=== PATIENT | male | born 1995 | race Asian ===

== ENCOUNTER 2021-05-20 01:55 | Emergency (ER) | payer BC ==
[~2021-05-20] VITALS: Ht 177.8 cm; Wt 77.1 kg
--- NOTE | 2021-05-20 02:08 | NUR ---
PT [employer] 61 AND [employer] FOR BIZARRE BEHAVIOR. RUNNING NAKED. GIVEN 5MG VERSED [employer]ONDITIONER. PLACED IN BED 14 ON MONITOR AND PULSE OX. ER MD AT BEDSIDE FOR EVAL. AWAITING ORDERS.
[2021-05-20] MEDS ORDERED: LORAZEPAM INJ 2 MG/ML VIAL ONE ×2 (02:19→09:32)
[2021-05-20] MEDS ORDERED: OLANZAPINE 10 MG VIAL IM ONE ×6 (02:19→12:30)
[2021-05-20] MEDS ORDERED: LIDOCAINE 2% JEL UROJET 10 ML MM ONE ×2 (02:26→02:30)
[2021-05-20] MEDS ORDERED: LORAZEPAM INJ 2 MG/ML VIAL IM ONE ×2 (02:30→10:00)
--- NOTE | 2021-05-20 02:42 | NUR ---
BLOOD DRAWN AND SENT TO LAB. URINE COLLECTED AND SENT TO LAB.
[2021-05-20 02:52] LABS: BASOPHILS # (AUTO) 0.1 K/uL (0.0-0.2); BASOPHILS % (AUTO) 0.3 % (0.0-2.0); HEMATOCRIT 44 % (39-51); HEMOGLOBIN 14.6 g/dL (13.5-17.5); LYMPHOCYTES # (AUTO) 0.8 K/uL (0.8-4.8); LYMPHOCYTES % (AUTO) 4.3 % (20.0-44.0); MEAN CORPUSCULAR HGB CONC 33 g/dl (31.0-36.0); MEAN CORPUSCULAR VOLUME 90 fL (80-96); MONOCYTES # (AUTO) 1.8 K/uL (0.1-1.30); MONOCYTES % (AUTO) 9.1 % (2.0-12.0); NEUTROPHILS # (AUTO) 16.7 K/uL (1.8-8.9); NEUTROPHILS % (AUTO) 86.3 % (43.0-81.0); PLATELET COUNT (AUTO) 312 K/uL (150-450); RED BLOOD CELL COUNT(AUTO) 4.86 MIL/uL (4.5-6.0); WHITE BLOOD COUNT (AUTO) 19.4 K/uL (4.3-11.0)
[2021-05-20 02:52] LABS: BILIRUBIN,URINE NEGATIVE (NEGATIVE); COLOR,URINE YELLOW (YELLOW); LEUKOCYTE ESTERASE ,URINE NEGATIVE (NEGATIVE); NITRITE, URINE NEGATIVE (NEGATIVE); PROTEIN,URINE 100 mg/dl (NEGATIVE); UGLUCOSE NEGATIVE (NEGATIVE); UROBILINOGEN,URINE 0.2 EU/dL (0.2)
--- NOTE | 2021-05-20 02:55 | NUR ---
ABDOULAYEID SWABBED, SENT TO LAB.
[2021-05-20 03:05] LABS: ALANINE AMINOTRANSFERASE 50 U/L (12-78); ALBUMIN 4.3 g/dL (3.4-5.0); ALCOHOL, BLOOD < 3 mg/dL (0-0); ALKALINE PHOSPHATASE 63 U/L (46-116); ASPARTATE AMINOTRANSFERASE 80 U/L (15-37); BILIRUBIN,DIRECT 0.2 mg/dL (0.0-0.2); BILIRUBIN,TOTAL 0.7 mg/dL (0.2-1.0); CALCIUM, SERUM 8.7 mg/dL (8.5-10.1); CARBON DIOXIDE 25 mmol/L (21-32); CHLORIDE 100 mmol/L (98-107); CREATININE 1.2 mg/dL (0.6-1.3); GLUCOSE 120 mg/dL (74-106); POTASSIUM 3.6 mmol/L (3.5-5.1); SODIUM SERUM 138 mmol/L (136-145); UREA NITROGEN, BLOOD 13 mg/dL (7-18)
[2021-05-20 03:26] LABS: ACETAMINOPHEN < 2 ug/ml (10-30)
[2021-05-20 04:38] LABS: BACTERIA,URINE Moderate /HPF (None Seen); SQUAMOUS EPITHELIAL CELL,UR Few /HPF (None Seen)
[2021-05-20 04:39] LABS: MUCUS,URINE Many /LPF (None Seen); SPERM,URINE Many /HPF (None Seen)
--- NOTE | 2021-05-20 08:16 | NUR ---
THE PATIENT IS RECEIVED IN ER BED #14. SLEEPING. RESPONSIVE TO VERBAL STIMULI. REPSIRATION REGULAR AND UNLABORED. WILL CONTINUE TO MONITOR THE PATIENT.
--- NOTE | 2021-05-20 15:22 | NUR ---
SW attempted to meet with pt. for interview. Pt. was not alert, oriented x1. During interview, pt. was giving SW a blank stare. SW was not able to get answers from pt. Pt. looked unkept. Evidenced by: bruises on legs. SW left homeless resources and homeless waiver in pt.'s chart.
--- NOTE | 2021-05-20 22:18 | NUR ---
Patient discharged to home in stable condition. Written and verbal after care instructions given. Patient verbalizes understanding of instruction.
[2021-05-20 22:19] VITALS: BP 120/69
== END 2021-05-20 22:19 | disposition home or self-care (01) ==
LOC: ER 02:00 → EDBD 02:00 → ER 22:19
DX: F15.121 Other stimulant abuse with intoxication delirium (principal); S80.212A Abrasion, left knee, initial encounter; X58.XXXA Exposure to other specified factors, initial encounter; Y92.89 Other specified places as the place of occurrence of the external cause; Z20.822 Contact with and (suspected) exposure to COVID-19; R00.0 Tachycardia, unspecified
CPT/HCPCS: 36415; 70450; 71045; 72125; 80048; 80076; 80143; 80307; 80320; 81001; 85025; 87086; 87426; 93005; 96372 ×2; 99291; C9803; J2060 ×2; J3490 ×4; 31720; 36600; 82803-TC; 94002-TC; 94760-TC; 99082-TC; G0480